=== PATIENT | male | born 1970 | race Caucasian/White ===

== ENCOUNTER 2024-10-27 02:28 | Emergency (ER) | payer BC ==
[~2024-10-27] VITALS: Ht 182.9 cm; Wt 100.0 kg
[2024-10-27] MEDS ORDERED: VITAMIN D21250 MCG PO (02:47)
[2024-10-27] MEDS ORDERED: AMITRIPTYLINE H25 MG PO (02:47)
[2024-10-27 02:51] LABS: BASOPHILS 0.5 % (0-2); EOSINOPHILS 3.4 % (0-6); HEMATOCRIT 43.1 % (35.0-50.0); HEMOGLOBIN 15.3 g/dL (12.0-18.0); LYMPHOCYTES 21.3 % (24-44); MCH 31.6 (27-36); MCHC 35.6 g/dl (30-36); MCV 88.9 fl (81-99); MONOCYTES 8.6 % (0-12); NEUTROPHILS 66.2 % (39-80); PLATELET COUNT 206 K/uL (140-440); RBC 4.84 M/ul (4.3-5.7)
[2024-10-27 03:18] LABS: ALBUMIN 3.8 g/dL (3.4-5.0); ALBUMIN/GLOBULIN RATIO 1.06 (1.1-2.4); ANION GAP 9.6 (7-21); BILIRUBIN, TOTAL 0.3 mg/dL (0.2-1.0); CALCIUM 8.4 mg/dL (8.5-10.1); MAGNESIUM 1.8 mg/dL (1.8-2.4); POTASSIUM 3.6 mmol/L (3.5-5.1); PROTEIN, TOTAL 7.4 g/dL (6.4-8.2)
[2024-10-27] MEDS ORDERED: FOLIC ACID1 MG PO (03:24)
[2024-10-27 04:00] VITALS: BP 132/91
== END 2024-10-27 04:00 | disposition home or self-care (01) ==
LOC: ED 02:28
PROVIDERS: Family Medicine
DX: R25.1 Tremor, unspecified (principal); R53.1 Weakness; Z79.899 Other long term (current) drug therapy; Z88.0 Allergy status to penicillin; Z88.5 Allergy status to narcotic agent
CPT/HCPCS: 36415; 80053; 83735; 84443; 85025; 99284